=== PATIENT | male | born 1995 | race Caucasian/White ===

== ENCOUNTER → 2024-11-04 08:54 | Outpatient (REF) | payer OTHER, SELFPAY | LOC: HO.SL 08:54 | PROVIDERS: PCP Internal Medicine; Visit Provider Internal Medicine | DX: R06.83 Snoring (principal) | CPT/HCPCS: 95806 ==

== ENCOUNTER → 2024-11-04 19:00 | Outpatient (BNV) | payer OTHER, SELFPAY | PROVIDERS: PCP Internal Medicine; Visit Provider Internal Medicine | DX: G47.10 Hypersomnia, unspecified (principal); R06.83 Snoring | CPT/HCPCS: 95806 ==